=== PATIENT | female | born 1945 | race Two or more races ===

== ENCOUNTER 2017-06-30 14:35 | Observation (INO) | payer MEDICARE ==
[2017-06-30] MEDS ORDERED: Aspirin Low Dose CHEW TAB* 81 MG PO ONE (15:16)
--- NOTE | 2017-06-30 15:34 | RAD ---
HISTORY: Chest pain COMPARISONS: July 26, 2015 VIEWS:1: Single frontal portable view of the chest at 3:21 PM FINDINGS: LINES AND TUBES: None. CARDIOMEDIASTINAL SILHOUETTE: The cardiomediastinal silhouette is normal for portable technique. PLEURA: The costophrenic angles are sharp. No pleural abnormalities are noted. LUNG PARENCHYMA: The lungs are clear. ABDOMEN: The upper abdomen is clear. There is no subphrenic gas. BONES AND SOFT TISSUES: No bone or soft tissue abnormalities are noted. IMPRESSION: NO ACTIVE CARDIOPULMONARY DISEASE.
[2017-06-30] MEDS ORDERED: Pantoprazole IV* 40 MG IV ONE (15:44)
[2017-06-30 16:00] LABS: Hematocrit 35 % (35-47); Hemoglobin 11.7 g/dl (12.0-16.0); Mean Corpuscular HGB Conc 34 g/dl (31-36); Mean Corpuscular Hemoglobin 30 pg (27-31); Mean Corpuscular Volume 87 fL (80-97); Mean Platelet Volume 9 um3 (7.4-10.4); Red Blood Count 3.98 10^6/ul (4.0-5.4); Red Cell Distribution Width 14 % (10.5-15)
[2017-06-30 16:15] LABS: ALT 15 U/L (7-52); Alkaline Phosphatase 66 U/L (34-104); BUN/Creatinine Ratio 25.3 (8-20); Blood Urea Nitrogen 24 mg/dL (6-24); CO2 Carbon Dioxide 26 mmol/L (22-32); Chloride 100 mmol/L (101-111); EGFR African American 74.6 (>60); Globulin 3.7 g/dL (2-4); Glucose 99 mg/dL (70-100); Sodium 131 mmol/L (133-145); Total Protein 7.7 g/dL (6.4-8.9)
[2017-06-30 16:16] LABS: Troponin I 0.01 ng/mL (<0.04)
[2017-06-30 16:20] LABS: Anion Gap 5 mmol/L (2-11)
[2017-06-30] MEDS ORDERED: Al Hydrox/Mg Hydrox/Simet LIQ* 30 ML UDC PO STA (16:29)
[2017-06-30] MEDS ORDERED: Lidocaine 2% VISCOUS* 15 ML UDC PO STA (16:29)
[2017-06-30] MEDS ORDERED: guaiFENesin ER TAB 600 MG PO PRN (16:32)
[2017-06-30] MEDS ORDERED: Fluticasone NASAL SPRAY 50MCG* 16 gm SPRAY BTL BOTH NARES PRN (16:32)
[2017-06-30] MEDS ORDERED: Polyethylene Glycol 3350* 17 GM PACKET PO PRN (16:32)
[2017-06-30] MEDS ORDERED: Triamcinolone 0.5% OINT * 15 GM TUBE TOPICAL PRN (16:32)
[2017-06-30] MEDS ORDERED: Ondansetron TAB* 4 MG PO PRN (16:32)
[2017-06-30] MEDS ORDERED: Meclizine TAB* 12.5 MG PO PRN (16:32)
[2017-06-30] MEDS ORDERED: Ondansetron INJ* 2 MG/ML VIAL IV PRN (16:34)
[2017-06-30] MEDS ORDERED: Acetaminophen TAB* 325 MG PO PRN (16:34)
[2017-06-30] MEDS ORDERED: Iodixanol* (CONTRAST) 320 MG/ML 100 ML SDV IV ONE (16:51)
--- NOTE | 2017-06-30 17:27 | RAD ---
Indication: Pleuritic chest pain and leg pain. Contrast: Administered 91.0 ml of Contrast -- mg/ml CTA of the chest was performed after IV contrast administration. Coronal and sagittal reconstructed images were obtained. The pulmonary arterial tree is well opacified. There are no filling defects present to suggest pulmonary embolus. There is no mediastinal or hilar adenopathy noted. The heart demonstrates no evidence of pericardial effusion. The aorta demonstrates ectasia of the ascending aorta measuring up to 3.6 cm. No evidence of aortic dissection is noted. The trachea and major bronchi appear patent. Dependent changes are noted in the lung bases posteriorly however no focal nodules or alveolar consolidation is noted. The visualized abdominal organs are otherwise unremarkable. There is a thyroid nodule in the lower pole left lobe of the thyroid. IMPRESSION: No evidence of aortic dissection. No evidence of pulmonary embolus.
[2017-06-30] MEDS ORDERED: oxyCODONE/Acetamin 5/325 MG* TAB PO PRN (17:39)
[2017-06-30] MEDS ORDERED: oxyCODONE/Acetamin 5/325 MG* TAB ONE (17:44)
[2017-06-30 18:12] LABS: Troponin I 0.01 ng/mL (<0.04)
[2017-06-30] MEDS ORDERED: Ketorolac INJ* 30 MG/ML 1 ML VIAL IV PUSH STA (18:31)
[2017-06-30] MEDS ORDERED: Ketorolac INJ* 30 MG/ML 1 ML VIAL IV PUSH PRN (18:31)
[2017-06-30] MEDS ORDERED: Nitroglycerin TAB 0.4 MG* 0.4 MG TAB SL PRN (18:32)
[2017-06-30 19:03] LABS: Urine Bacteria 1+ (Absent); Urine Bilirubin Negative (Negative); Urine Glucose Negative (Negative); Urine Nitrite Negative (Negative)
--- NOTE | 2017-06-30 19:17 | ED ---
Kiesha Finn Thomas, scribed for Mariajose Jaimes MD on 06/30/17 at 1546 . HPI Chest Pain - HPI Summary HPI Summary: The pt is a 71 y/o F presenting to the ED c/o L-sided CP that began today at 10: 00. The pain is sharp and burning and the pt rates the pain 9/10. The pain radiates to her back. The pain is aggravated by deep breaths and alleviated by nothing. The patient has treated the pain with Tylenol and ASA DRY SANDER. Pt additionally c/o chills, bilateral calf pain (new onset since yesterday), and bilateral knee pain. Pt denies SOB and diaphoresis. PMHx: CHF, HLD. PSHx: cholecystectomy. SHx: no smoking, no alcohol use, no illicit drug use. FHx: OR ( father at 49). She is accompanied by her . She had an echocardiogram performed two months ago. She also had a stress test performed two months ago. - History of Current Complaint Chief Complaint: EDChestPainROMI Time Seen by Provider: 06/30/17 14:42 Hx Obtained From: Patient, Family/Flight Hostess - in room Onset/Duration: Started Hours Ago - today at 10:00, Still Present Timing: Constant Pain Intensity: 9 Pain Scale Used: 0-10 Numeric Chest Pain Location: Discrete at: - L-sided Chest Pain Radiates: Yes Chest Pain Radiates To:: Back Character: Burning, Sharp/Stabbing Aggravating Factor(s): Deep Breaths Alleviating Factor(s): Nothing Associated Signs and Symptoms: Positive: Chest Pain, Other: - POS: bilateral calf pain (new-onset since yesterday), bilateral knee pain. Negative: Shortness of Breath, Diaphoresis - Allergy/Home Medications Allergies/Adverse Reactions: Allergies Allergy/AdvReac Type Severity Reaction Status Date / Time Oxandrolone [From Anavar] Allergy Severe Anaphylatic Verified 07/26/15 13:35 Shock Home Medications: Home Medications Fluconazole 150 MG (NF) [Diflucan 150 mg (NF)] 150 mg PO ONCE 06/30/17 [History Confirmed 06/30/17] Fluocinonide 0.05% CREAM(NF) 1 applic TOPICAL BID PRN 06/30/17 [History Confirmed 06/30/17] Hydrocortisone SUPP* [Anusol HC Supp*] 25 mg NV Q12HR PRN 06/30/17 [History Confirmed 06/30/17] Meclizine TAB* [Antivert 12.5 TAB*] 25 mg PO TID PRN 06/30/17 [History Confirmed 06/30/17] Metoprolol Succinate XL TAB* [Toprol XL TAB*] 50 mg PO BID 06/30/17 [History Confirmed 06/30/17] Nystatin CREAM* [Nystatin Cream*] 1 applic TOPICAL BID PRN 06/30/17 [History Confirmed 06/30/17] Ondansetron TAB* [Zofran 4 MG Tab*] 8 mg PO Q8HR PRN 06/30/17 [History Confirmed 06/30/17] Polyethylene Glycol 3350* [Miralax*] 17 gm PO DAILY PRN 06/30/17 [History Confirmed 06/30/17] Probiotic Product [Sportgenic] 1 cap PO DAILY 06/30/17 [History Confirmed 06/30/17] Pseudoephedrine-Guaifenesin [Mucinex D 60-600 mg] 1 tab PO BID PRN 06/30/17 [ History Confirmed 06/30/17] Selenium 100 mcg PO BID 06/30/17 [History Confirmed 06/30/17] Spironolactone TAB* [Aldactone TAB*] 25 mg PO DAILY 06/30/17 [History Confirmed 06/30/17] guaiFENesin ER TAB [Mucinex*] 1,200 mg PO BID PRN 06/30/17 [History Confirmed ] PMH/Surg Hx/FS Hx/Imm Hx Previously Healthy: No Endocrine/Hematology History: Reports: Hx Anemia - HX OF LOW IRON IN THE PAST Denies: Hx Diabetes Cardiovascular History: Reports: Hx Congestive Heart Failure - [id number], Hx Hypercholesterolemia - HLD, Other Cardiovascular Problems/Disorders - DR. DAVIES Denies: Hx Hypertension, Hx Pacemaker/ICD Respiratory History: Reports: Hx Seasonal Allergies Denies: Hx Chronic Obstructive Pulmonary Disease (COPD) GI History: Reports: Hx Diverticulosis, Hx Gastroesophageal Reflux Disease - ON MEDICATION FOR, Hx Hiatal Hernia History: Reports: Other Problems/Disorders - HEMATURIA- SEES DR. WALKER - HAS HAD A URETERAL DILITATION IN OFFICE Denies: Hx Dialysis Musculoskeletal History: Reports: Hx Arthritis - KNEE, Hx Back Problems - CHRONIC BACK PAIN, HERNIATED DISC, Hx Bursitis - SHOULDER, Other Musculoskeletal History - OBESITY Sensory History: Reports: Hx Contacts or Glasses - READING ONLY Denies: Hx Hearing Aid Opthamlomology History: Reports: Hx Contacts or Glasses - READING ONLY Neurological History: Reports: Other Neuro Impairments/Disorders - VERTIGO- YEARS AGO Denies: Hx Dementia, Hx Seizures - Surgical History Surgery Procedure, Year, and Place: 1963 TONSILECTOMY -[place]. 1974 [place]IF L ARM [place] 1981 HYSTERECTOMY OOPHORECTOMY [place] 1999 DEVIATED NASAL SEPTUM - [facility]. 1989? RIGHT CARPAL TUNNEL RELEASE -[facility]. 1993 OOPHORECTOMY -[facility]. 2005 L KNEE -[facility]. 2012 R TKR -[facility] Hx Anesthesia Reactions: Yes - 1974- REACTION TO OXANDROLONE Infectious Disease History: Denies: Traveled Outside the [place] in Last 30 Days - Family History Known Family History: Positive: Other - POS: OR (father at 49) - Social History Alcohol Use: None Substance Use Type: Reports: None Smoking Status (MU): Never Smoked Tobacco Review of Systems Positive: Chills. Negative: Fever Positive: Chest Pain - sharp/burning, onset today at 10:00, worse with deep breaths Negative: Shortness Of Breath Positive: Other - POS: bilateral calf pain new onset since yesterday, bilateral knee pain All Other Systems Reviewed And Are Negative: Yes Physical Exam Triage Information Reviewed: Yes Vital Signs On Initial Exam: Initial Vitals Temp Pulse Resp BP Pulse Ox 97.3 F 74 18 145/65 100 06/30/17 14:40 06/30/17 14:40 06/30/17 14:40 06/30/17 14:40 06/30/17 14:40 Vital Signs Reviewed: Yes Appearance: Positive: Well-Appearing, Pain Distress - she is uncomfortable Skin: Positive: Warm, Skin Color Reflects Adequate Perfusion, Dry Eyes: Positive: EOMI, EJNNI ENT: Positive: Pharynx normal, TMs normal Neck: Positive: Supple, Nontender Respiratory/Lung Sounds: Positive: Clear to Auscultation, Breath Sounds Present. Negative: Rales, Rhonchi, Wheezes Cardiovascular: Positive: RRR. Negative: Murmur, Rub, Other - NEG: gallop Abdomen Description: Positive: Nontender, Soft. Negative: Distended, Guarding, Other: - NEG: rebound Bowel Sounds: Positive: Present Musculoskeletal: Positive: Strength/ROM Intact. Negative: Edema Left, Edema Right Neurological: Positive: Sensory/Motor Intact, Alert, Oriented to Person Place, Time, CN Intact II-III Psychiatric: Positive: Affect/Mood Appropriate Diagnostics - Vital Signs Vital Signs Temp Pulse Resp BP Pulse Ox 06/30/17 14:40 97.3 F 74 18 145/65 100 - Laboratory Lab Results: Lab Results 06/30/17 06/30/17 06/30/17 Range/Units 15:50 15:50 15:50 WBC 7.0 (3.5-10.8) 10^3/ul RBC 3.98 L (4.0-5.4) 10^6/ul Hgb 11.7 L (12.0-16.0) g/dl Hct 35 (35-47) % MCV 87 (80-97) fL MCH 30 (27-31) pg MCHC 34 (31-36) g/dl RDW 14 (10.5-15) % Plt Count 230 (150-450) 10^3/ul MPV 9 (7.4-10.4) um3 Neut % (Auto) 61.6 (38-83) % Lymph % (Auto) 29.0 (25-47) % [place] % (Auto) 7.2 (1-9) % Eos % (Auto) 1.4 (0-6) % Baso % (Auto) 0.8 (0-2) % Absolute Neuts (auto) 4.3 (1.5-7.7) 10^3/ul Absolute Lymphs (auto) 2.0 (1.0-4.8) 10^3/ul Absolute Monos (auto) 0.5 (0-0.8) 10^3/ul Absolute Eos (auto) 0.1 (0-0.6) 10^3/ul Absolute Basos (auto) 0.1 (0-0.2) 10^3/ul Absolute Nucleated RBC 0 10^3/ul Nucleated RBC % 0 D-Dimer, Quantitative (Less Than 230) ng/mL Sodium 131 L (133-145) mmol/L Potassium TNP Chloride 100 L (101-111) mmol/L Carbon Dioxide 26 (22-32) mmol/L Anion Gap 5 (2-11) mmol/L BUN 24 (6-24) mg/dL Creatinine 0.95 (0.51-0.95) mg/dL Est GFR ( Amer) 74.6 (>60) Est GFR (Non-Af Amer) 58.0 (>60) BUN/Creatinine Ratio 25.3 H (8-20) Glucose 99 (70-100) mg/dL Lactic Acid 0.7 (0.5-2.0) mmol/L Calcium 9.0 (8.6-10.3) mg/dL Total Bilirubin 0.50 (0.2-1.0) mg/dL AST TNP ALT 15 (7-52) U/L Alkaline Phosphatase 66 (34-104) U/L Troponin I 0.01 (<0.04) ng/mL B-Natriuretic Peptide ( - 100) pg/mL Total Protein 7.7 (6.4-8.9) g/dL Albumin 4.0 (3.2-5.2) g/dL Globulin 3.7 (2-4) g/dL Albumin/Globulin Ratio 1.1 (1-3) Urine Color Urine Appearance Urine pH (5-9) Ur Specific [place] (1.010-1.030) Urine Protein (Negative) Urine Ketones (Negative) Urine Blood (Negative) Urine Nitrate (Negative) Urine Bilirubin (Negative) Urine Urobilinogen (Negative) Ur Leukocyte Esterase (Negative) Urine WBC (Auto) (Absent) Urine RBC (Auto) (Absent) Urine Bacteria (Absent) Urine Glucose (Negative) 06/30/17 06/30/17 06/30/17 Range/Units 15:50 15:50 16:00 WBC (3.5-10.8) 10^3/ul RBC (4.0-5.4) 10^6/ul Hgb (12.0-16.0) g/dl Hct (35-47) % MCV (80-97) fL MCH (27-31) pg MCHC (31-36) g/dl RDW (10.5-15) % Plt Count (150-450) 10^3/ul MPV (7.4-10.4) um3 Neut % (Auto) (38-83) % Lymph % (Auto) (25-47) % [place] % (Auto) (1-9) % Eos % (Auto) (0-6) % Baso % (Auto) (0-2) % Absolute Neuts (auto) (1.5-7.7) 10^3/ul Absolute Lymphs (auto) (1.0-4.8) 10^3/ul Absolute Monos (auto) (0-0.8) 10^3/ul Absolute Eos (auto) (0-0.6) 10^3/ul Absolute Basos (auto) (0-0.2) 10^3/ul Absolute Nucleated RBC 10^3/ul Nucleated RBC % D-Dimer, Quantitative < 200 (Less Than 230) ng/mL Sodium (133-145) mmol/L Potassium Chloride (101-111) mmol/L Carbon Dioxide (22-32) mmol/L Anion Gap (2-11) mmol/L BUN (6-24) mg/dL Creatinine (0.51-0.95) mg/dL Est GFR ( Amer) (>60) Est GFR (Non-Af Amer) (>60) BUN/Creatinine Ratio (8-20) Glucose (70-100) mg/dL Lactic Acid (0.5-2.0) mmol/L Calcium (8.6-10.3) mg/dL Total Bilirubin (0.2-1.0) mg/dL AST ALT (7-52) U/L Alkaline Phosphatase (34-104) U/L Troponin I (<0.04) ng/mL B-Natriuretic Peptide 13 ( - 100) pg/mL Total Protein (6.4-8.9) g/dL Albumin (3.2-5.2) g/dL Globulin (2-4) g/dL Albumin/Globulin Ratio (1-3) Urine Color Colorless Urine Appearance Clear Urine pH 6.0 (5-9) Ur Specific [place] 1.004 L (1.010-1.030) Urine Protein Negative (Negative) Urine Ketones Negative (Negative) Urine Blood 2+ H (Negative) Urine Nitrate Negative (Negative) Urine Bilirubin Negative (Negative) Urine Urobilinogen Negative (Negative) Ur Leukocyte Esterase Negative (Negative) Urine WBC (Auto) Absent (Absent) Urine RBC (Auto) Trace(0-2/hpf) (Absent) Urine Bacteria 1+ H (Absent) Urine Glucose Negative (Negative) Result Diagrams: 06/30/17 15:50 06/30/17 17:42 Lab Statement: Any lab studies that have been ordered have been reviewed, and results considered in the medical decision making process. - EKG 14:40 Cardiac Rate: NL - 74 BPM EKG Interpretation: LBBB. EKG Comparison: No Significant Change - since 07/26/15, there is no change. She had LBBB at that time. Chest Pain Course/Dx - Course Course Of Treatment: pt with cp and burping, ekg showed lbb, (Dr. Mi was called and he was able to confirm that this was not new) Case was discussed with Dr. Reyes for obv admission and case was also signed out to Dr. Lewis. Pt was admitted - Diagnoses Provider Diagnoses: Chest pain - Provider Notifications Discussed Care Of Patient With: Praneeth Reyes Time Discussed With Above Provider: 15:00 Instructed by Provider To: Other - The patient is admitted to the hospital by Dr. Reyes, hospitalist. Discharge - Discharge Plan Condition: Fair Disposition: ADMITTED TO [facility] The documentation as recorded by the Kiesha ware Thomas accurately reflects the service I personally performed and the decisions made by , Mariajose Jaimes MD.
[2017-06-30] MEDS: Metoprolol Succinate XL TAB* 50 MG PO SCH (21:49)
[2017-06-30] MEDS: Heparin VIAL(*) 5000 UNITS/ML VIAL (FIVE THOUSAND) SUBCUT SCH (21:52)
[2017-06-30] MEDS ORDERED: Enoxaparin(*) 100 MG/ML SYR SUBCUT ONE (22:25)
[2017-07-01 00:11] LABS: Troponin I 0.01 ng/mL (<0.04)
--- NOTE | 2017-07-01 01:25 | HP ---
CC: Dr. Chetna Patle * HISTORY AND PHYSICAL: DATE OF ADMISSION: 06/30/17 TIME OF MY EVALUATION: 6 p.m. PRIMARY CARE PROVIDER: Dr. Chetna Patel HISTORY OF PRESENT ILLNESS: Ms. Hall is a 71-year-old female with a history of nonischemic cardiomyopathy as well as obesity, who comes to the emergency room with sharp, burning pain in her chest that she rates as severe. The pain is right under her left breast. She is holding her breast as she describes it. She states that pain is in her chest wall, but radiates directly to her back as well as up into her left lateral neck. The pain is worse with deep breathing and alleviated by nothing. She tried only Tylenol and aspirin prior to arrival, she took 162 mg prior to EMS transfer and 81 mg earlier in the day, so she was complemented with another 81 mg in the emergency room. The patient has intermittent chills as well as bilateral calf pain, which was new since yesterday as well as bilateral knee pain. There was no shortness of breath described. The patient was evaluated in the emergency room and I opted to order a CTA chest given the history of bilateral leg pain as well as the characteristic of sharp pain radiating to her back (thinking aortic dissection. ) The CTA was negative for dissection. There was no evidence of pulmonary embolism on the pulmonary embolism front. Her D-dimer was negative at below 200 , so this was effectively ruled out with that. The patient's lung nolan were also clear and she is not short of breath at this time. She is accepting to stay in the hospital for rule out and also an echocardiogram. We entertained the possibility of pericarditis and she is interested in empiric treatment for that in the hospital (Toradol). I should note a GI cocktail was ineffective at relieving her symptoms in the emergency room and she is accompanied by her , who is keenly interested in her workup and a helpful historian as well. I did speak with Dr. Patel about her medical history, which included an episode of nonischemic cardiomyopathy diagnosed in 2013, during which time, her ejection fraction fell to below 20%. She had a cardiac catheterization that showed clean coronaries as well as several subsequent stress tests, which were all effectively normal. She is not interested in a stress test because she has had one only 2 months ago and this was low risk. She will, again, accept an echocardiogram on the possibility that it might show some pericardial findings. PAST MEDICAL HISTORY: 1. Nonischemic cardiomyopathy - EF has effectively normalized at this time based on recent echocardiograms communicated by Dr. Patel over the phone. 2. Status post total knee replacement. 3. Hand eczema. 4. Diverticulosis of the colon. 5. Hyperlipidemia. 6. Elevated BMI, currently 38 kg per meter squared, status post total abdominal hysterectomy and bilateral salpingo-oophorectomy. 7. Vertigo. 8. GERD. 9. Chronic back pain. 10. Unspecified microscopic hematuria. 11. Cutaneous candidiasis in her lower abdomen, abdominal fold, and under her breasts. OUTPATIENT MEDICATIONS: 1. Fluconazole 150 mg once (took earlier this week). 2. Hydrocortisone suppository/Anusol 25 mg per rectum q.12 hours p.r.n. 3. Nystatin cream apply to affected areas twice daily. 4. Omeprazole 20 to 40 mg by mouth twice daily (GERD). 5. Probiotic 1 capsule by mouth once daily. 6. Mucinex 60-600 (pseudoephedrine-guaifenesin) 1 tab by mouth twice daily. 7. Selenium 100 mcg by mouth twice daily. 8. Simvastatin 20 mg by mouth at bedtime. 9. Aspirin 81 mg by mouth daily. 10. Fluocinonide 0.5% strength (cream) 1 application to affected areas of skin twice daily. 11. Lisinopril 10 mg by mouth daily. 12. Meclizine 25 mg by mouth 3 times daily. 13. Metoprolol 25 mg by mouth twice daily. 14. Mometasone nasal spray 1 spray both nares daily. 15. Zofran 8 mg by mouth every 8 hours p.r.n. nausea. 16. Polyethylene glycol 17 g by mouth daily. 17. Spironolactone 25 mg by mouth daily. 18. Guaifenesin ER 1200 mg by mouth twice daily. ALLERGIES: OXANDROLONE. FAMILY HISTORY: Reviewed, but noncontributory in this pleasant patient. SOCIAL HISTORY: She is accompanied by her , for many years. 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 She is a nonsmoker, nondrinker. She is a pleasant woman. Her emergency contact is her and he is specified in the medical record, his name is Shashank Hall, home phone number is [phone] and the patient is a full code. REVIEW OF SYSTEMS: Review of 14 systems was accomplished at the bedside. This was largely negative except for the pertinent positives mentioned above in the HPI and past medical history. I will add that the patient had some urinary complaints of burning and frequency. She has got 2+ blood on urinalysis and 1+ bacteria (as well as trace rbc's 0 to 2 per high power field) and she states that her hematuria is known. The patient also describes bilateral lower leg fullness and some pain below her knees and this was new; otherwise, no pertinent findings in the review of systems. PHYSICAL EXAMINATION ON ADMISSION GENERAL APPEARANCE: She is an elderly woman, appears stated age, in no apparent distress. Awake, alert, and oriented x3 and is answering questions appropriately. VITAL SIGNS: Temperature 97.3, pulse 74, respirations 18, oxygen saturation 100 % on room air, blood pressure 140s/60s, repeated 100/40s. HEENT: Oropharynx is clear. Mucous membranes are moist. No posterior pharyngeal erythema or exudate. NECK: Supple. No adenopathy anteriorly or posteriorly. No carotid bruits appreciated. CHEST: Clear anteriorly and posteriorly. I could not elicit pain on examination of her chest wall nor on a left breast exam, where she was directly pointing to her pain. ABDOMEN: Nontender in her epigastrium. There was no evidence of zoster. She does have some cutaneous candidiasis under her breast, but this is mild and would not account for the degree of pain she was describing. Her abdomen is benign; otherwise, no masses, rebound, or guarding. She does have candidiasis in her subumbilical skin folds. EXTREMITIES: Without clubbing, cyanosis, or edema. Scars from knee surgery noted. Clean, dry, and intact and old. Extremities are otherwise unremarkable. NEUROLOGIC: No focal sensory, motor, or component deficiencies. PSYCH: Normal affect. No acute anxiety or depression. ADMISSION DATA: White blood cell count 7.0, hemoglobin 11.7, platelets 230. D - dimer less than 200. Blood chemistries significant for a borderline low sodium at 131, back in 2015, her sodium was normal, chloride 100, CO2 26, BUN 24 , creatinine 0.95, BUN to creatinine ratio is 25.3, glucose 99. LFTs normal. CK-MB and troponins were unremarkable x2. BNP only 13. Total protein 7.7. Albumin is 4. Urinalysis was described earlier and effectively showed small amounts of blood and absent white blood cells, not consistent with an infection. EKG showed atrial fibrillation at a rate of 74 beats per minute and a left bundle-branch block pattern that seems to be new compared to existing tracings in the medical record. Chest CTA showed no evidence of pulmonary embolism, no evidence of aortic dissection, no evidence of lung field abnormalities. IMPRESSION: Ms. Hall is a 71-year-old female, who presents with pleuritic - type chest pain with radiation to her posterior with negative troponins x2, unremarkable CTA, clear chest x-ray, and generally unremarkable labs, but with a new abnormal EKG with atrial fibrillation and a left bundle branch block. The patient will be placed on observation status and admitted to the hospital. I am going to request an echocardiogram. She has a history of nonischemic cardio-myopathy and her ejection fraction has responded since a low in 2014 of less than 20. She has had recent reportedly normal stress tests and echocardiograms. I am going to repeat the echocardiogram thinking that there might be some pericarditis and the atrial fibrillation at a controlled rate is confusing and so far it is causing pain in the absence of troponin or other abnormalities. I am going to repeat her EKG and perhaps involve Cardiology in the morning. I am going to also anticoagulate her with a dose of subcu Lovenox. She does not require more AV claudette blockade than her outpatient oral beta-evette, which I will continue in the hospital. I have sublingual nitroglycerin and IV morphine should she continue to experience chest pain, but at this point, she is comfortable. I added Toradol for the possibility of pericarditis. She is already on an aspirin and a statin. I will check a cholesterol level and further clinical decisions will be based on her progress during this observation stay. STATUS: Observation for now. Full code. Surrogate decision maker is the patient's , he is also the emergency contact. Cardiac diet at this time. TIME SPENT: Total time taken to admit Ms. Hall was 75 minutes, greater than half the time spent going over the admission history and physical with the patient at the bedside. [id number]/[facility] #: [id number] [facility]
[2017-07-01] MEDS: Morphine INJ* 2 MG/ML 1 ML SYRINGE IV PRN ×2 (05:23→09:39)
[2017-07-01] MEDS: Heparin VIAL(*) 5000 UNITS/ML VIAL (FIVE THOUSAND) SUBCUT SCH ×2 (05:23→15:53)
[2017-07-01] MEDS: Metoprolol Succinate XL TAB* 50 MG PO SCH (08:10)
[2017-07-01] MEDS: Spironolactone TAB* 25 MG PO SCH ×2 (08:10→14:36)
[2017-07-01] MEDS ORDERED: Perflutren Lipid Microsphere* 3 ML VIAL ONE (08:52)
[2017-07-01] MEDS ORDERED: Aspirin EC Low Dose* 81 MG TAB.EC PO SCH (09:00)
[2017-07-01] MEDS ORDERED: Lisinopril TAB* 10 MG PO SCH (09:00)
[2017-07-01 11:04] VITALS: BP 90/51
--- NOTE | 2017-07-01 13:12 | ECHO ---
Patient: JENNA CANCINO [facility] Rec#: [id number] : 1945 Date: 07/01/2017 Age: 71y Height: 162.56 cm / 64.0 in Weight: 101.6 kg / 223.9 lbs Sex: F BSA: 2.05 Room#: 453 Admit Date#: 06/30/2017 Type: Inpatient Referring: Praneeth Reyes MD Reading: Arjun Mi DO Retail Support Specialist: [employer]R Retail Support Specialist: Magaly Wong RDCS Retail Support Specialist: LOVE CC: Chetna Patel MD CC: Evangelista Ngo MD Transthoracic Echocardiogram Indication: Pericarditis BP: 124/58 HR: 63 Rhythm: NSR Findings History: LBBB,a-f-b,nonischemic cardiomyopathy,HLD. Technical Comments: The study is technically limited due to patient body habitus. Completed at 1020. Left Ventricle: The left ventricular chamber size is normal. Mild concentric left ventricular hypertrophy is observed. There is mildly decreased left ventricular systolic function. The estimated ejection fraction is 45-50%. appears closer to 50% There is a left ventricular septal wall motion abnormality observed, possibly due to the presence of a left bundle branch block. The assessment of diastolic function is non-diagnostic. Left Atrium: The left atrial chamber size is normal. Right Ventricle: The right ventricular chamber size and systolic function are within normal limits. Right Atrium: The right atrial cavity size is normal. Aortic Valve: The aortic valve is trileaflet. The aortic valve leaflets are mildly thickened. There is evidence of aortic sclerosis without stenosis. There is mild aortic regurgitation. Mitral Valve: There is mitral annular calcification. The mitral valve leaflets are mildly thickened. There is trace to mild mitral regurgitation. There is no evidence of mitral stenosis. Tricuspid Valve: The tricuspid valve leaflets are normal. There is trace to mild tricuspid regurgitation. There is evidence of mild pulmonary hypertension. There is no tricuspid stenosis. Pulmonic Valve: The pulmonic valve appears normal. There is no evidence of pulmonic regurgitation. There is no pulmonic stenosis. Pericardium: There is no significant pericardial effusion. Aorta: There is no dilatation of the ascending aorta. There is no dilation of the aortic root. Pulmonary Artery: The main pulmonary artery is not well visualized. Venous: The venous system is not well visualized. Contrast: Definity was used to optimize study. A total of 5 ml utilized. Intravenous contrast was used to enhance endocardial border definition. Conclusions The left ventricular chamber size is normal. Mild concentric left ventricular hypertrophy is observed. There is low normal to mildly decreased left ventricular systolic function. The estimated ejection fraction is 45-50%, appears closer to 50% There is a left ventricular septal wall motion abnormality due to the presence of a left bundle branch block. The left atrial chamber size is normal. There is evidence of mild pulmonary hypertension. Aortic sclerosis without significant stenosis noted. Definity was used to optimize study. Compared to summary of prior TTE 02/2016, findings are roughly similar (LVEF calculated 52% at that time) Measurements Name Value Normal Range RVIDd (AP) 2D 2.2 cm (0.9 - 2.6) RVDdMajor (2D) 4 cm (2.2 - 4.4) RAd ISD 4CH 4.5 cm (3.4 - 4.9) RA (A4C)W 3.2 cm (2.9 - 4.6) IVSd (2D) 1.1 cm (0.6 - 1) LVPWd (2D) 1.1 cm (0.6 - 1) LVIDd (2D) 4 cm (3.6 - 5.4) LVIDs (2D) 3.2 cm - LV FS (2D) 20 % (25 - 45) Aortic Annulus 2.1 cm (1.4 - 2.6) Ao root diameter (2D) 3.1 cm (2.1 - 3.5) Ascending Ao 3.4 cm (2.1 - 3.4) Aortic arch 3 cm (1.8 - 3.4) Descending Ao 0.5 cm - LA dimension (AP) 2D 3.2 cm (2.3 - 3.8) LAd ISD 4CH 5.8 cm (2.9 - 5.3) LA ISD 4CH W 4.3 cm (2.5 - 4.5) Name Value Normal Range LA ESV SP 4CH (A/L) 53 ml - LA ESV SP 2CH (A/L) 67 ml - LA ESV BP (A/L) 61 ml - LA ESV BP (A/L) index 29.93 ml/m2 - LA ESV SP 4CH (MOD) 50 ml - LA ESV SP 2CH (MOD) 63 ml - Name Value Normal Range MV E-wave Vmax 0.7 m/sec - MV deceleration time 201 msec - MV A-wave Vmax 0.8 m/sec - MV E:A ratio 0.84 ratio - LV septal e' Vmax 0.08 m/sec - LV lateral e' Vmax 0.1 m/sec - LV E:e' septal ratio 8.75 ratio - LV E:e' lateral ratio 7 ratio - Name Value Normal Range AV Vmax 2 m/sec - AV VTI 40.4 cm - AV peak gradient 15.56 mmHg - AV mean gradient 7.31 mmHg - LVOT diameter 2.2 cm - LVOT Vmax 1.1 m/sec - LVOT VTI 25.6 cm - LVOT peak gradient 4.99 mmHg - LVOT mean gradient 2.32 mmHg - PEYMAN (continuity Vmax) 2.1 cm2 - PEYMAN (continuity VTI) 2.4 cm2 - AR PHT 481 msec - AR peak gradient 84.15 mmHg - Name Value Normal Range MR Vmax 4.71 m/sec - MR VTI 170.26 cm - Name Value Normal Range TR Vmax 2.8 m/sec - TR peak gradient 31 mmHg - RAP 8 mmHg - RVSP 39 mmHg - Name Value Normal Range PV Vmax 0.8 m/sec - PV peak gradient 2.51 mmHg -
[2017-07-01] MEDS: Nystatin TOP POWDER* 15 GM BTL TOPICAL SCH ×2 (15:16→15:53)
--- NOTE | 2017-07-01 15:32 | PN ---
Subjective Date of Service: 07/01/17 Interval History: Ms. Hall feels better today. There is still a dull pain in her left mid- clavicular to mid-axillary line that worsens with a deep breath, but is unchanged with ambulation or position. She has been getting morphine with relief. She denies nausea, vomiting, shortness of breath, or palpitations. Family History: Unchanged from Admission Social History: Unchanged from Admission Past Medical History: Unchanged from Admission Objective Active Medications: Acetaminophen (Tylenol Tab*) 650 mg PO Q4H PRN PRN Reason: FEVER/PAIN Last Admin: 07/01/17 02:57 Dose: 650 mg Aspirin (Aspirin Ec Low Dose*) 81 mg PO DAILY [facility] Last Admin: 07/01/17 08:10 Dose: 81 mg Fluticasone Propionate (Flonase Nasal [place] 50mcg*) 1 spray BOTH NARES DAILY PRN PRN Reason: ALLERGY Guaifenesin (Mucinex*) 1,200 mg PO BID PRN PRN Reason: CONGESTION Heparin Sodium (Porcine) (Heparin Vial(*)) 5,000 units SUBCUT Q8HR [facility] Last Admin: 07/01/17 05:23 Dose: 5,000 units Ketorolac Tromethamine (Toradol Inj*) 30 mg IV PUSH Q6H PRN PRN Reason: PAIN Lisinopril (Prinivil Tab*) 10 mg PO DAILY [facility] Last Admin: 07/01/17 08:10 Dose: 10 mg Meclizine HCl (Antivert Tab*) 25 mg PO TID PRN PRN Reason: VERTIGO Metoprolol Succinate (Toprol Xl Tab*) 50 mg PO BID [facility] Last Admin: 07/01/17 08:10 Dose: 50 mg Nitroglycerin (Nitroglycerin Tab 0.4 Mg*) 0.4 mg SL Q5M PRN PRN Reason: ANGINA Nystatin (Nystatin Top Powder*) 1 applic TOPICAL TID [facility] Last Admin: 07/01/17 15:16 Dose: Not Given Ondansetron HCl (Zofran Tab*) 8 mg PO Q8HR PRN PRN Reason: NAUSEA Ondansetron HCl (Zofran Inj*) 4 mg IV Q4H PRN PRN Reason: NAUSEA/VOMITING Oxycodone/Acetaminophen (Percocet 5/325 Tab*) 2 tab PO Q4H PRN PRN Reason: PAIN Last Admin: 06/30/17 17:46 Dose: 2 tab Polyethylene Glycol/Electrolytes (Miralax*) 17 gm PO DAILY PRN PRN Reason: CONSTIPATION Spironolactone (Aldactone Tab*) 25 mg PO DAILY EZEQUIEL Last Admin: 07/01/17 14:36 Dose: Not Given Triamcinolone Acetonide (Triamcinolone 0.5% Oint *) 1 applic TOPICAL BID PRN PRN Reason: ITCHING Vital Signs 06/30/17 06/30/17 06/30/17 17:46 18:05 19:02 Temperature 97.8 F Pulse Rate 62 Respiratory 16 16 16 Rate Blood Pressure 107/59 (mmHg) O2 Sat by Pulse 98 Oximetry 06/30/17 07/01/17 07/01/17 23:56 03:57 04:16 Temperature 97.5 F 97.6 F Pulse Rate 62 60 Respiratory 20 20 Rate Blood Pressure 108/56 92/47 124/58 (mmHg) O2 Sat by Pulse 96 96 Oximetry 07/01/17 07/01/17 07/01/17 05:23 06:23 07:45 Temperature 97.4 F Pulse Rate 65 Respiratory 19 20 18 Rate Blood Pressure 104/59 (mmHg) O2 Sat by Pulse 96 Oximetry 07/01/17 07/01/17 09:39 11:04 Temperature 97.5 F Pulse Rate 72 Respiratory 18 18 Rate Blood Pressure 90/51 (mmHg) O2 Sat by Pulse 96 Oximetry Oxygen Devices in Use Now: None Appearance: Alert, well- appearing, no distress. Her is at the bedside. Eyes: No Scleral Icterus, PERRLA Ears/Nose/Mouth/Throat: NL Teeth, Lips, Gums, Mucous Membranes Moist Neck: NL Appearance and Movements; NL JVP, Trachea Midline, No Thyroid Enlargement, Masses Respiratory: Symmetrical Chest Expansion and Respiratory Effort, Clear to Auscultation, Clear to Percussion Cardiovascular: RRR, No Edema, - - ii/vi systolic murmur throughout. no rash or contusion at the point of pain. pain is localized to the mid-clavicular line , and is mildly tender to palpation. no crepitus or point tenderness. Abdominal: NL Sounds; No Tenderness; No Distention, No Hepatosplenomegaly Lymphatic: No Cervical Adenopathy Extremities: No Edema, No Clubbing, Cyanosis Skin: - - excoriated, erythematous patch under pannus Neurological: Alert and Oriented x 3 Nutrition: Taking PO's Result Diagrams: 06/30/17 15:50 06/30/17 17:42 Additional Lab and Data: Lab Results 06/30/17 06/30/17 06/30/17 Range/Units 15:50 15:50 15:50 WBC 7.0 (3.5-10.8) 10^3/ul RBC 3.98 L (4.0-5.4) 10^6/ul Hgb 11.7 L (12.0-16.0) g/dl Hct 35 (35-47) % MCV 87 (80-97) fL MCH 30 (27-31) pg MCHC 34 (31-36) g/dl RDW 14 (10.5-15) % Plt Count 230 (150-450) 10^3/ul MPV 9 (7.4-10.4) um3 Neut % (Auto) 61.6 (38-83) % Lymph % (Auto) 29.0 (25-47) % [place] % (Auto) 7.2 (1-9) % Eos % (Auto) 1.4 (0-6) % Baso % (Auto) 0.8 (0-2) % Absolute Neuts (auto) 4.3 (1.5-7.7) 10^3/ul Absolute Lymphs (auto) 2.0 (1.0-4.8) 10^3/ul Absolute Monos (auto) 0.5 (0-0.8) 10^3/ul Absolute Eos (auto) 0.1 (0-0.6) 10^3/ul Absolute Basos (auto) 0.1 (0-0.2) 10^3/ul Absolute Nucleated RBC 0 10^3/ul Nucleated RBC % 0 D-Dimer, Quantitative (Less Than 230) ng/mL Sodium 131 L (133-145) mmol/L Potassium TNP Chloride 100 L (101-111) mmol/L Carbon Dioxide 26 (22-32) mmol/L Anion Gap 5 (2-11) mmol/L BUN 24 (6-24) mg/dL Creatinine 0.95 (0.51-0.95) mg/dL Est GFR ( Amer) 74.6 (>60) Est GFR (Non-Af Amer) 58.0 (>60) BUN/Creatinine Ratio 25.3 H (8-20) Glucose 99 (70-100) mg/dL Lactic Acid 0.7 (0.5-2.0) mmol/L Calcium 9.0 (8.6-10.3) mg/dL Total Bilirubin 0.50 (0.2-1.0) mg/dL AST TNP ALT 15 (7-52) U/L Alkaline Phosphatase 66 (34-104) U/L Troponin I 0.01 (<0.04) ng/mL B-Natriuretic Peptide ( - 100) pg/mL Total Protein 7.7 (6.4-8.9) g/dL Albumin 4.0 (3.2-5.2) g/dL Globulin 3.7 (2-4) g/dL Albumin/Globulin Ratio 1.1 (1-3) Urine Color Urine Appearance Urine pH (5-9) Ur Specific [place] (1.010-1.030) Urine Protein (Negative) Urine Ketones (Negative) Urine Blood (Negative) Urine Nitrate (Negative) Urine Bilirubin (Negative) Urine Urobilinogen (Negative) Ur Leukocyte Esterase (Negative) Urine WBC (Auto) (Absent) Urine RBC (Auto) (Absent) Urine Bacteria (Absent) Urine Glucose (Negative) 06/30/17 06/30/17 06/30/17 Range/Units 15:50 15:50 16:00 WBC (3.5-10.8) 10^3/ul RBC (4.0-5.4) 10^6/ul Hgb (12.0-16.0) g/dl Hct (35-47) % MCV (80-97) fL MCH (27-31) pg MCHC (31-36) g/dl RDW (10.5-15) % Plt Count (150-450) 10^3/ul MPV (7.4-10.4) um3 Neut % (Auto) (38-83) % Lymph % (Auto) (25-47) % [place] % (Auto) (1-9) % Eos % (Auto) (0-6) % Baso % (Auto) (0-2) % Absolute Neuts (auto) (1.5-7.7) 10^3/ul Absolute Lymphs (auto) (1.0-4.8) 10^3/ul Absolute Monos (auto) (0-0.8) 10^3/ul Absolute Eos (auto) (0-0.6) 10^3/ul Absolute Basos (auto) (0-0.2) 10^3/ul Absolute Nucleated RBC 10^3/ul Nucleated RBC % D-Dimer, Quantitative < 200 (Less Than 230) ng/mL Sodium (133-145) mmol/L Potassium Chloride (101-111) mmol/L Carbon Dioxide (22-32) mmol/L Anion Gap (2-11) mmol/L BUN (6-24) mg/dL Creatinine (0.51-0.95) mg/dL Est GFR ( Amer) (>60) Est GFR (Non-Af Amer) (>60) BUN/Creatinine Ratio (8-20) Glucose (70-100) mg/dL Lactic Acid (0.5-2.0) mmol/L Calcium (8.6-10.3) mg/dL Total Bilirubin (0.2-1.0) mg/dL AST ALT (7-52) U/L Alkaline Phosphatase (34-104) U/L Troponin I (<0.04) ng/mL B-Natriuretic Peptide 13 ( - 100) pg/mL Total Protein (6.4-8.9) g/dL Albumin (3.2-5.2) g/dL Globulin (2-4) g/dL Albumin/Globulin Ratio (1-3) Urine Color Colorless Urine Appearance Clear Urine pH 6.0 (5-9) Ur Specific [place] 1.004 L (1.010-1.030) Urine Protein Negative (Negative) Urine Ketones Negative (Negative) Urine Blood 2+ H (Negative) Urine Nitrate Negative (Negative) Urine Bilirubin Negative (Negative) Urine Urobilinogen Negative (Negative) Ur Leukocyte Esterase Negative (Negative) Urine WBC (Auto) Absent (Absent) Urine RBC (Auto) Trace(0-2/hpf) (Absent) Urine Bacteria 1+ H (Absent) Urine Glucose Negative (Negative) EKG Data: repeat ekg this morning: old lbbb, unchanged from prior Assess/Plan/Problems-Billing Assessment: 1. Chest Pain, atypical. ACS, PE, aortic dissection, and pneumothorax have been ruled out. Her pain is not consistent with pericarditis, and her history does not support pericarditis. She has no rash to suggest zoster, her CXR was unremarkable, and her pain has improved today. Will discontinue morphine today and continue toradol only. I suspect her pain is musculoskeletal. 2. History of nonischemic cardiomyopathy. Was thought to be viral versus takotsubo at the time of insult, however subsequent TTE showed resolution. A repeat TTE today showed ef of 50%, mild concentric hypertrophy, and no valvular disease. 3. LBBB. A LHC was normal, and a stress test this year was unremarkable. This is unchanged from prior. 4. Candidal Intertrigo. Her PCP prescribed PO fluconazole when powder failed. She has 7 days left at home and will be instructed to continue fluconazole. 5. Disposition. Out of bed today, home this afternoon with a short course of anti-inflammatories. Attending: Clover Swan
--- NOTE | 2017-07-01 19:58 | DS ---
CC: chest pain HPI: 71 yo female with history of NICM (with recovered ef) admitted with left- sided chest pain. She described the pain as under her left breast but coming from her back. The pain did not change with exertion and was not associated with shortness of breath, diaphoresis, nausea, or vomiting. It was not associated with food. No position changed the pain. No recent illness. No recent falls. The pain improved in the ED with morphine. PMH: NICM (thought to be due to takotsubo's CM versus viral CM), with recovered ef GERD Social: Nonsmoker, non-drinker, lives at home with her . PE: Please see today's progress note. EKG: Regular rate, old LBBB, unchanged from prior Pertinent Labs: Troponin <0.04 x 3 Hospital course by problem: 1. Atypical Chest Pain. ACS was ruled out. A CTA was performed due to the nature of the pain radiating from her back, which ruled out aortic dissection. No PE was seen, and though it was not a PE protocol study, a d-dimer was also negative. Her history was not consistent with pericarditis. No rash evolved, and the pain was not consistent with zoster pain. She was observed for 24 hours , and the pain was deemed to be musculoskeletal in nature. Morphine was discontinued and she was encouraged to take ibuprofen around the clock for one day, use hot compresses, and call her PCP if the pain did not improve. She was warned about not using NSAIDs for a prolonged period of time. 2. Intertriginous Candidiasis. Her PCP had prescribed fluconazole when the rash failed therapy with nystatin powder. This was continued. 3. GERD. Chest pain did not improve with a GI cocktail. Home pepcid was continued.
== END 2017-07-01 16:28 | disposition home or self-care (01) ==
LOC: ED 14:35 → MEDTELE 16:34
PROVIDERS: ADMIT Internal Medicine; ATTEND Internal Medicine
DX: R07.89 Other chest pain (principal); I44.7 Left bundle-branch block, unspecified; I48.91 Unspecified atrial fibrillation; B37.2 Candidiasis of skin and nail; K21.9 Gastro-esophageal reflux disease without esophagitis; I35.1 Nonrheumatic aortic (valve) insufficiency; I36.1 Nonrheumatic tricuspid (valve) insufficiency; I34.0 Nonrheumatic mitral (valve) insufficiency; I27.2 Other secondary pulmonary hypertension; Z79.899 Other long term (current) drug therapy
CPT/HCPCS: 36415; 71010; 71275; 80053; 81003; 81015; 82553; 83605; 83880; 84484; 85025; 85379; 87077; 87086; 87186; 93005; 93306; 99284; A9270-GY; C8929; G0378; J1644; J1650; J1885; J2270; Q9967

== ENCOUNTER 2018-08-07 01:36 | Emergency (ER) | payer MEDICARE ==
--- OUTSIDE RECORDS SUMMARY | 2018-08-07 01:52 | XMS REPORT ---
:1945 External Reference #:[id number] Author Organization [employer] Address [address] [place] [address] [place] [address] Phone [phone] Care Team Providers Name Role Phone Chetna Patel MD Primary Care Physician Unavailable Payers Type Date Identification Payment Subscriber Numbers Provider Health Maintenance Effective: Policy Number: Medicare Lantronixce Pressable [place] 10/31/2012 [id number] [facility] [employer] Number: [id number] [address] PayID: [id number] HERB Chatman [address] Medigap Part B Expires: 10/30/2010 Policy Number: Lilia Hall [id number] Group Number: [id number] [address] PayID: [id number] HERB [place]man [address] Health Maintenance Expires: Policy Number: Medicare Lantronixce Pressable ([facility] 10/30/2012 [id number] [facility] [employer] Number: [id number] [address] PayID: [id number] HERB Chatman [address] Problems Date Description Provider Status Onset: 01/24/2013 Electrocardiogram abnormal Evangelista Ngo M.D. Active Onset: 01/24/2013 Left bundle branch block Evangelista Ngo M.D. Active Onset: 01/24/2013 Mixed hyperlipidemia Evangelista Ngo M.D. Active Onset: 08/27/2014 Primary cardiomyopathy Evangelista Ngo M.D. Active Onset: 08/27/2014 Hyperlipidemia Evangelista Ngo M.D. Active Onset: 08/27/2014 Low blood pressure Evangelista Ngo M.D. Active Family History Date Family Member(s) Problem(s) Comments Father Diabetes, Insulin Dependent Father due to NC () Mother due to Stroke () First Son Alive And Well Second Son Alive And Well Siblings 5 First Brother CABG Second Brother Heart Disease Second Brother Diabetes, Non Insulin Dependent First Sister Diabetes, Insulin Dependent First Sister Hypercholesterolemia Second Sister Hypertension Maternal Grandfather due to Natural Causes () Maternal Grandfather Parkinson's Disease Maternal Grandmother due to Diabetes () - 85 Social History Type Date Description Comments Marital Status Lives With Occupation Retired ETOH Use Occasionally consumes alcohol Smoking Patient has never smoked Recreational Drug Use Denies Drug Use Daily Caffeine Consumes on average 1 cup of regular coffee per day Exercise Type/Frequency Exercises regularly elliptical, weight lifting 3 times weekly. Allergies, Adverse Reactions, Alerts Date Description Reaction Status Severity Comments 01/24/2013 NKDA active Medications Medication Date Status Form Strength Qnty SIG Indications Ordering Provider Lisinopril 08/04 Active Tablets 10mg 1 by mouth every day Chepe Ngo M.D. Amoxicillin 01/29 Active Capsules 500mg 12cap 4 tablets s hour before Earle, dental work M.D. Premarin Active Tablets 0.625mg 90tab 2x/week s Nystatin/Triamc Active Cream 916008-0. 60gm apply to Unknown inolone 1Unit/GM- affected % area twice daily as needed Miralax Active Packet 3350NF 1Mon 17 gm qd prn Zocor Active Tablets 20mg 100ta 1 po qhs bs Probiotic Active Capsules 1 po qd Spironolactone Active Tablets 25mg 1 by mouth Unknown every day Metoprolol Active Tablets ER 100mg 1 by mouth Unknown Succinate ER 0000 24HR every day Omeprazole Active Capsules DR 20mg 1 by mouth bid Docusate Sodium Active Capsules 100mg 1tab daily Unknown prn Ciprofloxacin Active Tablets 500mg 1 tab by Unknown mouth twice a day (UTI) Lisinopril 10/23 Hx Tablets 2.5mg 90tab 1 by mouth ta [facility]. Aspirin 10/07 Hx Tablets 81mg 1 by mouth Qut[facility]b [facility] , M.D. Metoprolol 08/23 Hx Tablets 25mg 180ta one by Qutayb Tar bs mouth twice [facility]. Lisinopril 08/23 Hx Tablets 2.5mg 1 by mouth [facility]b [facility]. Keflex 03/28 Hx Capsules 500mg 21cap 1 po tid Dir Marcella Arellano M.DLucas 08/26 Percocet 02/07 Hx Tablets 5-325mg 40tab 1-2 tabs po Dir s q4-6 prn Earle, - pain M.D. 08/26 Amoxicillin 01/08 Hx Tablets 500mg 8tabs take 4 tabs 1 hr prior Earle, - to dental M.D. 01/[address] Hx Tablets DR 325mg 1 po qd Unknown / - 10/10 Clotrimazole Hx Cream 1% 15G topical to Unknown / affected - area qd prn 08/03 Colace Hx Capsules 100mg 60cap 1 po bid Unknown / s - 01/24 Fluconazole Hx Tablets 150mg 2tabs one by Unknown / mouth may - repeat in 3 01/24 days needed Flucinonide(Danii Hx Ointment externally Unknown dex) / - 08/03 Anusol-HC Hx Suppository 25mg 28uni 1 Unknown ts suppository - bid x 14 Anusol-HC Hx Cream 2.5% 30gmt apply to Unknown /0000 ube rectum 3-4 - times per Ibuprofen Hx Tablets 600mg 120ta 1 po tid Unknown /0000 bs prn - 08/26 Nasonex Hx Suspension 50mcg/Act 1unit 2 sprays to Unknown /0000 s each - nostril 08/26 twice daily Medications Administered in Office Medication Date Status Form Strength Qnty SIG Indications Ordering Provider Depomedrol Administered Injection Dirk Earle, 80MG 011 M.D. Vital Signs Date Vital Result Comment 08/04/2018 Height 61 inches 5'1" Weight 225.00 lb W/ Shoes Heart Rate 78 /min BP Systolic Sitting 108 mmHg Lue Large Cuff BP Diastolic Sitting 60 mmHg Lue Large Cuff BMI (Body Mass Index) 42.5 kg/m2 Ejection Fraction 45-50% ECHO 07/01/17 10/07/2014 Height 61 inches 5'1" Weight 233.00 lb Heart Rate 70 /min BP Systolic Sitting 144 mmHg left BP Diastolic Sitting 83 mmHg left BMI (Body Mass Index) 44.0 kg/m2 08/27/2014 Height 61 inches 5'1" Weight 229.25 lb Heart Rate 112 /min BP Systolic Sitting 104 mmHg LA, large BP Diastolic Sitting 64 mmHg LA, large BMI (Body Mass Index) 43.3 kg/m2 01/24/2013 Height 61 inches 5'1" Weight 233.00 lb Heart Rate 80 /min BP Systolic Sitting 162 mmHg BP Diastolic Sitting 98 mmHg Respiratory Rate 20 /min BMI (Body Mass Index) 44.0 kg/m2 10/04/2011 Height 64 inches 5'4" Weight 230.00 lb Heart Rate 84 /min BP Systolic 136 mmHg BP Diastolic 83 mmHg BMI (Body Mass Index) 39.5 kg/m2 Results Test Date Test Result H/L Range Note CBC Auto Diff 02/07/2013 White Blood Count 5.8 10^3/uL 4.8-10.8 Red Blood Count 4.18 10^6/uL 4.0-5.4 Hemoglobin 12.4 g/dL 12.0-16.0 Hematocrit 37 % 35-47 Mean Corpuscular Volume 88 fL 80-97 Mean Corpuscular Hemoglobin 30 pg 27-31 Mean Corpuscular HGB Conc 34 g/dL 31-36 Red Cell Distribution Width 13 % 10.5-15 Platelet Count 216 10^3/uL 150-450 Mean Platelet Volume 8 um3 7.4-10.4 Abs Neutrophils 3.2 10^3/uL 1.5-7.7 Abs Lymphocytes 2.0 10^3/uL 1.0-4.8 Abs Monocytes 0.5 10^3/uL 0-0.8 Abs Eosinophils 0.1 10^3/uL 0-0.6 Abs Basophils 0 10^3/uL 0-0.2 Abs Nucleated RBC 0 10^3/uL Granulocyte % 55.8 % 38-83 Lymphocyte % 34.0 % 25-47 Monocyte % 8.3 % 1-9 Eosinophil % 1.5 % 0-6 Basophil % 0.4 % 0-2 Nucleated Red Blood Cells % 0 Laboratory test finding 02/07/2013 Inr 0.92 0.87-0.97 1 Activated Partial Thrombo Time 29.7 seconds 22.18-37.18 2 Type & Screen 02/07/2013 Patient Blood Type A Positive Antibody Screen NEGATIVE Basic Metabolic Panel 02/07/2013 Sodium 136 mmol/L 133-145 Potassium 3.9 mmol/L 3.5-5.0 Chloride 104 mmol/L 101-111 Co2 Carbon Dioxide 27.0 mmol/L 22-32 Anion Gap 5.0 mmol/L 2-11 Glucose 109 mg/dL High 70-100 Blood Urea Nitrogen 16 mg/dL 6-24 Creatinine 0.60 mg/dL 0.50-1.40 BUN/Creatinine Ratio 26.7 High 8-20 Calcium 8.7 mg/dL 8.1-9.9 Egfr Non- 99.7 >60 Egfr 128.2 >60 3 Urinalysis 02/07/2013 Urine Color Yellow Urine Appearance Clear Urine Specific [place] 1.009 Low 1.010-1.030 Urine Esterase Negative Negative Urine Nitrate Negative Negative Urine Urobilinogen Negative E.U./dL Negative Urine Protein Negative mg/dL Negative Urine pH 5.5 5-9 Urine Blood 1+ Negative Urine Ketones Negative mg/dL Negative Urine Bilirubin Negative Negative Urine Glucose Negative mg/dL Negative Urine Microscopic 02/07/2013 Urine WBC 1+ (<10 /hpf) None Seen Urine RBC 1+ (<3 /hpf) None Seen Urine Epithelial Cells 1+ Squamous /hpf None Seen Bacteria Urine 1+ None Seen 1 AA 02/13 2 AA 02/13 3 Because ethnic data is not always readily available, this report includes an eGFR for both -Americans and non- Americans. The National Kidney Disease Education Program (NKDEP) does not endorse the use of the MDRD equation for patients that are not between the ages of 18 and 70, are , have extremes of body size, muscle mass, or nutritional status, or are non- or non-. According to the National Kidney Foundation, irrespective of diagnosis, the stage of the disease is based on the level of kidney function: Stage Description GFR(mL/min/1.73 m(2)) 1 Kidney damage with normal or decreased GFR 90 2 Kidney damage with mild decrease in GFR 60-89 3 Moderate decrease in GFR 30-59 4 Severe decrease in GFR 15-29 5 Kidney failure <15 (or dialysis) Procedures Date CPT Code Description Status 08/04/2018 47256 EKG Tracing & Interpretation Completed 07/01/2017 21321 ECHO Transthorasic Realtime 2D W Doppler & Color Flow Completed Hosp 07/01/2017 85349 EKG, Interpretation Only Completed 06/30/2017 96040 EKG, Interpretation Only Completed 10/04/2014 53322 ECHO Transthoracic, Real-Time 2D With Doppler And Color Completed Flow 10/04/2014 15113 ECHO Transthoracic, Real-Time 2D With Doppler And Color Completed Flow 09/04/2014 25122 Holter Monitor Review (24 hr)dr review & interp only Completed 08/27/2014 78800 EKG Tracing & Interpretation Completed 08/23/2014 22665 EKG, Interpretation Only Completed 08/23/2014 61531 ECHO Transthorasic Realtime 2D W Doppler & Color Flow Completed Hosp 08/23/2014 30901 Left Heart Cath. Incl S/I Coronaries, Angio S/I V Gram Completed If Done 08/15/2013 24186 Xray Knee 3 Views Completed 08/15/2013 96059 Rad Exam; Knee, Ap&L Completed 02/13/2013 32238 TKR Total Knee Replacement Completed 02/13/2013 75098 TKR Total Knee Replacement Completed 02/01/2013 53167 Stress Test Supervsn W/Out I/R Completed 02/01/2013 17979 Treadmill Interp/Report Only Completed 02/01/2013 28062 ECHO Transthorasic Realtime 2D W Doppler & Color Flow Completed Hosp 02/01/2013 96677 Pulse Wave/Continuous-Interp.RPT Completed 02/01/2013 83338 Color Flow Doppler/Interp & Reprt Completed 02/01/2013 24724 Stress ECHO Interpretation/Report Hospital Completed 01/24/2013 51559 EKG Tracing & Interpretation Completed 10/25/2012 13899 Xray Knee 3 Views Completed 10/25/2012 69347 Rad Exam; Knee, Ap&L Completed 10/04/2011 31329 Xray Knee 3 Views Completed 10/04/2011 09915 Rad Exam; Knee, Ap&L Completed 10/04/2011 87219 Rad Exam; Hip Unilat Completed 10/04/2011 68328 Rad Exam; Pelvis Completed 10/04/2011 97725 Inject/Drain Joint/Bursa Major W/O US Completed 09/15/2004 81606 ECHO/Stress Completed 09/15/2004 95439 Treadmill Interp/Report Only Completed 09/15/2004 81550 Stress Test Supervsn W/Out I/R Completed Encounters Type Date Location Provider CPT E/M Dx Office Visit 08/04/2018 1:40p [facility] Richpillo SLucas Ngo, 27920 I42.9 M.D. E66.9 E78.2 R94.31 I44.7 Office Visit 06/30/2017 9:06a [facility] Assreyna, Praneeth Reyes 80397 R07.2 Hospitalists M.DLucas E66.9 I42.9 Office Visit 07/26/2015 1:10p [facility] [place] [address] 786.50 Assoc, Hospitalists 729.5 Office Visit 10/07/2014 8:20a [facility] SLucas Ngo, 56098 786.50 M.D. 425.4 424.1 424.0 794.31 272.4 401.1 Office Visit 08/27/2014 2:15p [facility] Nicoletaybpillo SLucas Ngo, 08595 425.4 M.D. 272.4 458.8 424.1 424.0 794.31 Office Visit 08/24/2014 3[facility] [address] 786.50 Assoc, Hospitalists Cyn 425.4 789.00 530.81 Office Visit 08/23/2014 8:38a [facility] Bruce Jones, 87908 786.50 M.DLuacs 790.99 Office Visit 08/23/2014 3[facility]p [facility] [address]571 786.50 Assoc, Hospitalists Cyn 425.4 789.00 530.81 Office Visit 08/22/2014 3:37p [facility] Ming Friesland, 14036 786.50 Assoc, Hospitalists N.P. 272.4 530.81 278.00 Office Visit 08/15/2013 9:00a [facility] Flaco Og M.D. 93670 715.96 Of C.M.A. Office Visit 05/16/2013 2:30p [facility] Matteo He 18275 715.96 Of C.M.ALadi Prater 719.46 Office Visit 02/01/2013 9:30a [facility] Evangelista Ngo, 35683 794.31 M.DLucas 401.0 Office Visit 01/24/2013 2:40p [facility] Evangelista Ngo, 20109 794.31 M.DLucas 426.3 272.2 Office Visit 10/25/2012 8:30a [facility] Flaco Og M.D. 03936 715.96 C.M.A. 727.09 V54.81 V43.65 Office Visit 10/04/2011 8:45a [facility] Flaco Og M.D. 91683 715.96 C.M.A. 719.45 Plan of Care Future Appointment(s):10/02/2018 10:00 am - [place] ECHO Schedule at [facility]08/04/2018 - Evangelista Ngo M.D.I42.9 Cardiomyopathy, unspecifiedNew Orders:EchocardiogramFollow up:8 months ovE66.9 Obesity, kiuerlijxlsB36.2 Mixed gxnyxqjpszwuafP92.31 Abnormal electrocardiogram [ECG] [ EKG]I44.7 Left bundle-branch block, unspecified
--- NOTE | 2018-08-07 02:35 | ED ---
GI/ HPI - HPI Summary HPI Summary: This patient is a 72 year old F presenting to [facility] with a chief complaint of hematuria since 00:00 today. The patient rates the pain 5/10 in severity. Patient reports dysuria. Patient denies itching. Pt had a cyst removed from her vagina on 08/04/18 and was also recently dx with a UTI. She is currently on Cipro. - History of Current Complaint Chief Complaint: EDUrogenitalProblems Time Seen by Provider: 08/07/18 02:26 Stated Complaint: BLOOD IN URINE Hx Obtained From: Patient Onset/Duration: Started Hours Ago - 00:00 today Pain Intensity: 5 Associated Signs and Symptoms: Positive: Hematuria, Dysuria, Other: - Denies itching during urination - Additional Pertinent History Primary Care Physician: RICHARD - Allergy/Home Medications Allergies/Adverse Reactions: Allergies Allergy/AdvReac Type Severity Reaction Status Date / Time MS Oxandrolone [From Anavar] Allergy Severe Anaphylatic Verified 07/26/15 13:35 Shock PMH/Surg Hx/FS Hx/Imm Hx Endocrine/Hematology History: Reports: Hx Anemia - HX OF LOW IRON IN THE PAST Denies: Hx Diabetes Cardiovascular History: Reports: Hx Congestive Heart Failure - H[phone]-SEEN IN [facility], Hx Hypercholesterolemia - HLD, Other Cardiovascular Problems/Disorders - DR. DAVIES Denies: Hx Hypertension, Hx Pacemaker/ICD Respiratory History: Reports: Hx Seasonal Allergies Denies: Hx Chronic Obstructive Pulmonary Disease (COPD) GI History: Reports: Hx Diverticulosis, Hx Gastroesophageal Reflux Disease - ON MEDICATION FOR, Hx Hiatal Hernia History: Reports: Other Problems/Disorders - HEMATURIA- SEES DR. WALKER - HAS HAD A URETERAL DILITATION IN OFFICE Denies: Hx Dialysis Musculoskeletal History: Reports: Hx Arthritis - KNEE, Hx Back Problems - CHRONIC BACK PAIN, HERNIATED DISC, Hx Bursitis - SHOULDER, Other Musculoskeletal History - OBESITY Sensory History: Reports: Hx Contacts or Glasses - READING ONLY Denies: Hx Hearing Aid Opthamlomology History: Reports: Hx Contacts or Glasses - READING ONLY Neurological History: Reports: Other Neuro Impairments/Disorders - VERTIGO- YEARS AGO Denies: Hx Dementia, Hx Seizures - Surgical History Surgery Procedure, Year, and Place: 1963 TONSILECTOMY [place]. [place] L [place] 1981 HYSTERECTOMY OOPHORECTOMY -[facility] [place]. 1999 DEVIATED NASAL SEPTUM - [facility] [place]. 1989? RIGHT CARPAL TUNNEL RELEASE -[facility] [place]. 1993 OOPHORECTOMY -[facility] [place]. 2005 L KNEE -[facility] [place]. 2013 R TKR -[facility] Hx Anesthesia Reactions: Yes - 1974- REACTION TO OXANDROLONE Infectious Disease History: No Infectious Disease History: Denies: Traveled Outside the [place] in Last 30 Days - Family History Known Family History: Positive: Other - POS: [place] (father at 49) - Social History Occupation: Retired Lives: With Family Alcohol Use: None Substance Use Type: Reports: None Smoking Status (MU): Never Smoked Tobacco Review of Systems Negative: Fever Positive: dysuria, hematuria, other - Denies itching during urination All Other Systems Reviewed And Are Negative: Yes Physical Exam - Summary Physical Exam Summary: VITAL SIGNS: Reviewed. GENERAL: Patient is a morbidly obese FEMALE who is lying comfortable in the stretcher. Patient is not in any acute respiratory distress. HEAD AND FACE: No signs of trauma. No ecchymosis, hematomas or skull depressions. No sinus tenderness. EYES: PERRLA, EOMI x 2, No injected conjunctiva, no nystagmus. EARS: Hearing grossly intact. Ear canals and tympanic membranes are within normal limits. MOUTH: Oropharynx within normal limits. NECK: Supple, trachea is midline, no adenopathy, no JVD, no carotid bruit, no c- spine tenderness, neck with full ROM. CHEST: Symmetric, no tenderness at palpation LUNGS: Clear to auscultation bilaterally. No wheezing or crackles. CVS: Regular rate and rhythm, S1 and S2 present, no murmurs or gallops appreciated. ABDOMEN: Soft, non-tender. No signs of distention. No rebound no guarding, and no masses palpated. Bowel sounds are normal. EXTREMITIES: FROM in all major joints, no edema, no cyanosis or clubbing. NEURO: Alert and oriented x 3. No acute neurological deficits. Speech is normal and follows commands. SKIN: Dry and warm PELVIC AND SPECULUM EXAM: No vaginal bleeding, cervix looks normal, no bleeding , some mild white discharge. Triage Information Reviewed: Yes Vital Signs On Initial Exam: Initial Vitals Temp Pulse Resp BP Pulse Ox 98.1 F 88 16 141/71 97 08/07/18 01:40 08/07/18 01:40 08/07/18 01:40 08/07/18 01:40 08/07/18 01:40 Vital Signs Reviewed: Yes Diagnostics - Vital Signs Vital Signs Temp Pulse Resp BP Pulse Ox 08/07/18 01:40 98.1 F 88 16 141/71 97 - Laboratory Result Diagrams: 08/07/18 02:46 08/07/18 02:46 Lab Statement: Any lab studies that have been ordered have been reviewed, and results considered in the medical decision making process. - CT Abdomen/Pelvis CT CT Interpretation Completed By: Radiologist - 04:08. 1. There is diverticulosis no CT evidence of diverticulitis. 2. There is a moderate size umbilical hernia containing mesenteric fat. 3. No evidence of nephrolithiasis. ED Physician has reviewed this imaging report. Re-Evaluation - Re-Evaluation 1 Re-Evaluation Time: 04:15 Comment: Reviewed CT scan results with patient. Still has hematuria but no retention. Able to urinate with no problem. GIGU Course/Dx - Course Course Of Treatment: This patient is a 72 year old F presenting to [facility] with a chief complaint of hematuria since 00:00 today. The patient rates the pain 5/10 in severity. Patient reports dysuria. Patient denies itching. Pt had a cyst removed from her vagina on 08/04/18 and was also recently dx with a UTI. She is currently on Cipro. Abdomen/Pelvis CT showed: 1. There is diverticulosis no CT evidence of diverticulitis. 2. There is a moderate size umbilical hernia containing mesenteric fat. 3. No evidence of nephrolithiasis. I reviewed the CT scan results with patient. She still has hematuria but no retention. She is able to urinate with no problem. I told her to follow up with Dr. Walker this morning. - Diagnoses Provider Diagnoses: Hematuria Discharge - Sign-Out/Discharge Documenting (check all that apply): Patient Departure - Discharge Plan Condition: Stable Disposition: HOME Patient Education Materials: Hematuria (ED) Referrals: Chetna Patel MD [Primary Care Provider] - 2 Days Nilson Walker MD [Medical Doctor] - As Soon As Possible Additional Instructions: RETURN TO THE EMERGENCY DEPARTMENT FOR CHANGING OR WORSENING SYMPTOMS. FOLLOW UP WITH PCP IN 1-2 DAYS. - Attestation Statements Document Initiated by Scribe: Yes Documenting Scribe: Luis Gregorio Provider For Whom Scribe is Documenting (Include Credential): Mounika Berumen MD Scribe Attestation: I, Luis Gregorio, scribed for Mounika Berumen MD on 08/07/18 at 0431.
[2018-08-07] MEDS ORDERED: Sulfamethox/Trimethoprim DS 800/160* TAB PO ONE (02:43)
[2018-08-07 02:58] LABS: ABS Basophils 0 10^3/ul (0-0.2); ABS Eosinophils 0.1 10^3/ul (0-0.6); ABS Lymphocytes 1.9 10^3/ul (1.0-4.8); ABS Monocytes 0.8 10^3/ul (0-0.8); ABS Neutrophils 7.2 10^3/ul (1.5-7.7); ABS Nucleated RBC 0 10^3/ul; Hematocrit 34 % (35-47); Hemoglobin 11.4 g/dl (12.0-16.0); Lymphocyte % 19.1 % (25-47); Mean Corpuscular HGB Conc 34 g/dl (31-36); Mean Corpuscular Hemoglobin 29 pg (27-31); Mean Corpuscular Volume 86 fL (80-97); Mean Platelet Volume 7.9 um3 (7.4-10.4); Nucleated Red Blood Cells % 0.1; Platelet Count 197 10^3/ul (150-450); Red Blood Count 3.89 10^6/ul (4.00-5.40); Red Cell Distribution Width 14 % (10.5-15)
[2018-08-07 03:08] LABS: INR 0.94 (0.77-1.02)
[2018-08-07 03:13] LABS: Urine Appearance Turbid; Urine Blood 3+ (Negative); Urine Ketones Trace (Negative); Urine Protein 2+(100 mg/dL) (Negative); Urine Red Blood Cell Absent (Absent); Urine Specific Gravity 1.018 (1.010-1.030); Urine Urobilinogen Negative (Negative); Urine White Blood Cell Absent (Absent)
[2018-08-07 03:13] LABS: EGFR Non-African American 48.8 (>60)
[2018-08-07 03:18] LABS: Urine Color Red
--- NOTE | 2018-08-07 04:09 | RAD ---
EXAM: CT Abdomen and Pelvis Without Intravenous Contrast CLINICAL HISTORY: 72 years old, female; Signs and symptoms; Other: Hematuria TECHNIQUE: Axial computed tomography images of the abdomen and pelvis without intravenous contrast. All CT scans at this facility use at least one of these dose optimization techniques: automated exposure control; mA and/or kV adjustment per patient size (includes targeted exams where dose is matched to clinical indication); or iterative reconstruction. Coronal and sagittal reformatted images were created and reviewed. COMPARISON: A/P W CT ABD/PEL W 11/07/2011 10:34 PM FINDINGS: Lung bases: Unremarkable. No mass. No consolidation. ABDOMEN: Liver: Unremarkable. Gallbladder and bile ducts: The patient is status post cholecystectomy. No ductal dilation. Pancreas: Unremarkable. No ductal dilation. Spleen: Unremarkable. No splenomegaly. Adrenals: Unremarkable. No mass. Kidneys and ureters: Unremarkable. No obstructing stones. No hydronephrosis. Stomach and bowel: There is diverticulosis no CT evidence of diverticulitis. No obstruction. PELVIS: Appendix: The appendix is visualized and is unremarkable. Bladder: Unremarkable. No stones. Reproductive: Unremarkable as visualized. ABDOMEN and PELVIS: Intraperitoneal space: Unremarkable. No free air. No significant fluid collection. Bones/joints: No acute fracture. No dislocation. Soft tissues: There is a moderate size umbilical hernia containing mesenteric fat. Vasculature: Unremarkable. No abdominal aortic aneurysm. Lymph nodes: Unremarkable. No enlarged lymph nodes. IMPRESSION: 1. There is diverticulosis no CT evidence of diverticulitis. 2. There is a moderate size umbilical hernia containing mesenteric fat. 3. No evidence of nephrolithiasis. To contact [facility] with a general question: Operations Center - [phone] For direct physician to physician contact: Physician Hotline - [phone] [facility] ([facility] Facility ID #[id number])
[2018-08-07] MEDS ORDERED: oxyCODONE/Acetamin 5/325 MG* TAB PO ONE (04:46)
[2018-08-07 05:00] VITALS: BP 138/64
== END 2018-08-07 04:59 | disposition home or self-care (01) ==
LOC: ED 01:36
DX: N39.0 Urinary tract infection, site not specified (principal); R31.9 Hematuria, unspecified; K42.9 Umbilical hernia without obstruction or gangrene; K21.9 Gastro-esophageal reflux disease without esophagitis; E66.01 Morbid (severe) obesity due to excess calories; I50.9 Heart failure, unspecified; E78.00 Pure hypercholesterolemia, unspecified; E78.5 Hyperlipidemia, unspecified
CPT/HCPCS: 36415; 74176; 80053; 81003; 81015; 85025; 85610; 85730; 99283; A9270-GY

== ENCOUNTER 2024-01-18 06:17 | Observation (INO) ==
[2024-01-18 07:31] LABS: ABS Eosinophils 0.1 10^3/uL (0.0-0.5); ABS Lymphocytes 1.8 10^3/uL (1.0-4.8); ABS Monocytes 0.5 10^3/uL (0.0-0.9); ABS Neutrophils 5.6 10^3/uL (1.5-7.6); Eosinophil % 0.8 %; Hematocrit 34.4 % (35-45); Hemoglobin 11.9 g/dL (11.5-14.3); Lymphocyte % 22.6 %; Mean Corpuscular Hemoglobin 30.5 pg (27-33); Mean Corpuscular Hgb Conc 34.6 g/dL (31-36); Mean Corpuscular Volume 88.1 fL (80-97); Mean Platelet Volume 7.6 fL (7.5-11.2); Nucleated Red Blood Cells % 0.1 %/100WBC (0.0-0.8); Platelet Count 214 10^3/uL (150-450); Red Cell Distribution Width 13.8 % (12-17); White Blood Count 7.9 10^3/uL (3.8-11.8)
[2024-01-18 07:39] LABS: Urine Appearance Clear; Urine Bilirubin Negative (Negative); Urine Blood 1+ (Negative); Urine Color Colorless; Urine Glucose Negative (Negative); Urine Ketones Negative (Negative); Urine Nitrite Negative (Negative); Urine Protein Negative (Negative); Urine Specific Gravity 1.005 (1.002-1.030); Urine Urobilinogen Negative (Negative)
[2024-01-18] MEDS: Lactated Ringers 1000 ml BAG 1,000 ML IV ONE ×2 (07:39→13:54)
[2024-01-18 07:42] LABS: Urine Bacteria Absent /HPF (Absent); Urine Red Blood Cell Trace(0-2/hpf) /HPF (0-Trace); Urine White Blood Cell Trace(0-5/hpf) /HPF (0-Trace)
[2024-01-18] MEDS: Morphine 4 MG/ML VIAL (1 ml) IV ONE (08:09)
[2024-01-18] MEDS: Ondansetron 4 mg VIAL 2 MG/ML 2 ml VIAL IV ONE (08:09)
[2024-01-18 08:18] LABS: Albumin 4.2 g/dL (3.2-5.2); Albumin/Globulin Ratio 1.4 (1-3); C Reactive Protein 46.2 mg/L (<8.01); Calcium 9.3 mg/dL (8.6-10.3); Creatinine, Serum 1.04 mg/dL (0.51-0.95); Globulin 2.9 g/dL (2-4); Potassium 4.2 mmol/L (3.5-5.0); Total Bilirubin 0.6 mg/dL (0.2-1.0); Total Protein 7.1 g/dL (6.4-8.9)
[2024-01-18] MEDS: Iodixanol (CONTRAST) 320 MG/ML 100 ML SDV IV ONE (09:25)
[2024-01-18] MEDS: Piperacillin/Tazobac 3.375 BAG 3.375 GM/100 ML BAG IV ONE (11:12)
[2024-01-18] MEDS ORDERED: Ondansetron 4 mg VIAL 2 MG/ML 2 ml VIAL IV PRN (11:25)
[2024-01-18] MEDS ORDERED: Zosyn per Pharmacy NOTE FOLLOW UP SCH (12:00)
[2024-01-18] MEDS ORDERED: Morphine 4 MG/ML VIAL (1 ml) IV PRN (12:31)
[2024-01-18] MEDS: Enoxaparin 40 MG/0.4 ML SYR SUBCUT SCH (13:54)
[2024-01-18] MEDS: ZOSYN 3.375 GM Q8H per EXTENDED INFUSION IV SCH (16:26)
[2024-01-18] MEDS: Morphine 2 MG/ML SYRINGE IV PRN (18:33)
[2024-01-18] MEDS: NS 0.9% 1000 ml BAG 1,000 ML IV SCH (21:11)
[2024-01-19 07:41] LABS: ABS Eosinophils 0.1 10^3/uL (0.0-0.5); ABS Lymphocytes 1.6 10^3/uL (1.0-4.8); ABS Monocytes 0.4 10^3/uL (0.0-0.9); ABS Neutrophils 3.3 10^3/uL (1.5-7.6); Eosinophil % 1.5 %; Hematocrit 32.2 % (35-45); Lymphocyte % 29.3 %; Mean Corpuscular Hemoglobin 30.5 pg (27-33); Mean Corpuscular Volume 89.5 fL (80-97); Mean Platelet Volume 8.3 fL (7.5-11.2); Platelet Count 195 10^3/uL (150-450); Red Cell Distribution Width 13.7 % (12-17); White Blood Count 5.4 10^3/uL (3.8-11.8)
[2024-01-19 07:57] LABS: Calcium 8.4 mg/dL (8.6-10.3); Creatinine, Serum 1.02 mg/dL (0.51-0.95); Magnesium 1.6 mg/dL (1.9-2.7); Potassium 4.2 mmol/L (3.5-5.0); eGFR CKD-EPI 56.3 (>60)
[2024-01-19] MEDS ORDERED: CMC:Omeprazole 20 mg CAP (NF) PO SCH (10:00)
[2024-01-19] MEDS: CMC:Omeprazole 20 mg CAP (NF) PO SCH (10:27)
[2024-01-19] MEDS: CMCS:Anastrozole 1 mg TAB (NF) PO SCH (10:27)
[2024-01-19 13:02] VITALS: BP 105/56
== END 2024-01-19 15:00 | disposition home or self-care (01) ==
LOC: ED 06:17 → EDHOLD 06:17 → SUATTDRO 11:24 → MED 15:28
PROVIDERS: ADMIT Hospitalist; ATTEND Internal Medicine